=== PATIENT | male | born 1960 | race Caucasian/White ===

== ENCOUNTER → 2016-04-02 | Outpatient (CLI) | payer MEDICAID ==
--- NOTE | 2016-04-02 17:35 | DX ---
Chest, PA and Lateral History: Dyspnea x1 week, worsening dyspnea x1 week, hospitalized in February for pneumonia, J44.1 Findings: Right lower lobe consolidation has cleared. There is a significantly decreased amount of fl uid in the anterior right major fissure. There is no new infiltrate. There is chronic bronchial wall thickening associated with moderately prominent lung volumes. There is a stable mild T8 and T12 compr ession deformity, without new compression deformities. The costophrenic gutters are sharp. Impression: 1. Persistent airways disease /COPD 2. Improving pneumonia and right pleural effusion.
== END ==
LOC: FIMAGING 16:20
PROVIDERS: ATTEND Family Medicine
DX: J44.9 Chronic obstructive pulmonary disease, unspecified (principal); J18.9 Pneumonia, unspecified organism

== ENCOUNTER 2016-06-28 22:13 | Emergency (ER) | payer MEDICAID ==
--- NOTE | 2016-06-28 22:19 | EDPHY ---
H & P Source: Patient, EMS - Medical/Surgical History Hx Asthma: No Hx Chronic Respiratory Disease: Yes Hx Diabetes: No Hx Cardiac Disease: No Hx Renal Disease: No Hx Cirrhosis: No Hx Alcoholism: Yes Hx HIV/AIDS: No Hx Splenectomy or Spleen Trauma: No Other PMH: ETOH, respiratory illness-unspecified, COPD, right ankle fracture, tonsillectomy, DVT RLE - Social History Smoking Status: Current every day smoker HPI/ROS: HPI CHIEF COMPLAINT: Alcohol Intoxication HISTORY OF PRESENT ILLNESS: HPI CHIEF COMPLAINT: Alcohol Intoxication HISTORY OF PRESENT ILLNESS: Patient 55-year-old homeless male, significant past medical history daily alcohol use and alcoholism, was found on the ground by bystanders behind [employer] when EMS please make contact with him. They noticed that he had right eyebrow trauma with a horizontal laceration. No other signs of trauma. Patient presents emergency room no complaints. He is highly intoxicated slurring his speech. No other signs of trauma exam. He is calm and cooperative. Past Medical History: daily alcohol use Past Surgical History: recent surgical history Social History: homeless, daily alcohol use Family History: Noncontributory ROS REVIEW OF SYSTEMS: A comprehensive 10 point review of systems is otherwise negative aside from elements mentioned in the history of present illness. Exam Constitutional Intoxicated, triage nursing summary reviewed, vital signs reviewed, Sleepy, smells of alcohol Eyes normal conjunctivae and sclera, horizontal beating nystagmus consistent acute alcohol intoxication, otherwise pupils equal and react to light HENT face: right horizontal eyebrow laceration 3 cm in horizontal length, orbit stable, midface stable, normal inspection, atraumatic, moist mucus membranes, no epistaxis, neck supple/ no meningismus, no raccoon eyes. Respiratory clear to auscultation bilaterally, normal breath sounds, no respiratory distress, no wheezing. Cardiovascular rate normal, regular rhythm, no murmur, no edema, distal pulses normal. Gastrointestinal soft, non-tender, no rebound, no guarding, normal bowel sounds, no distension, no pulsatile mass. Genitourinary no CVA tenderness. Musculoskeletal no midline vertebral tenderness, full range of motion, no calf swelling, no tenderness of extremities, no meningismus, good pulses, neurovascularly intact. Skin pink, warm, & dry, no rash, skin atraumatic. Neurologic sleepy, intoxicated with alcohol,, alert and oriented x 3, AAOx3, moves all 4 extremities equally, motor intact, sensory intact, CN II-XII intact , , normal vision, normal speech. Psychiatric normal mood/affect. Heme/Lymph/Immune no lymphadenopathy. Differential Diagnosis: Includes but is not limited to in a particular order acute alcohol intoxication, alcohol abuse, dehydration, electrolyte abnormality , nausea vomiting from acute alcohol intoxication Medical Decision Making: Includes but is not limited to in a particular order acute alcohol intoxication, alcohol abuse, homelessness, head trauma, facial fracture, facial laceration, soft tissue injury, closed head injury Re-evaluation: Plan for this patient breath alcohol and CT head without contrast for trauma. Patient will need his laceration of his right eyebrow repaired. Breath alcohol 292. TIME OF BREATH 1031PM CT scan of the head without contrast for trauma The results of the study are negative for acute traumatic injury The study was read by Dr. Sanchez I viewed the images myself on the PACS system. Patient ambulated throughout the emergency room without any difficulty steady gait. Safe for discharge to the [facility]. ([place]) Constitutional: Initial Vital Signs Temperature (C) 36.3 C 06/28/16 22:21 Heart Rate 99 06/28/16 22:21 Respiratory Rate 17 06/28/16 22:21 Blood Pressure 122/76 H 06/28/16 22:21 O2 Sat (%) 91 L 06/28/16 22:21 O2 Delivery Mode Room Air Allergies/Adverse Reactions: No Known Allergies Allergy (Unverified 04/02/15 23:02) Home Medications: Medication Instructions Recorded Albuterol [Ventolin Hfa Inhaler] 1 - 2 puffs IH Q4 PRN 08/05/15 Fluticasone/Salmeter 500/50Mcg 1 puffs IH BID 08/05/15 [Advair 500/50 (*)] Tiotropium Inhaler [Spiriva 1 puffs IH DAILY 08/05/15 Handihaler] Acetaminophen [Tylenol 325mg (*)] 650 mg PO Q4 PRN #0 tab 08/07/15 Rivaroxaban [Xarelto] 20 mg PO DAILY #30 tab 08/07/15 Tramadol HCl 50 mg PO Q6 PRN #45 tablet 08/07/15 Acetaminophen [Tylenol 325mg (*)] 650 mg PO Q6HRS PRN #0 tab 03/03/16 Benzonatate [Tessalon Pearles] 200 mg PO TID PRN #20 cap 03/03/16 guaiFENesin [Mucinex 600 MG (*)] 1,200 mg PO BID #0 tab.er 03/03/16 levOFLOXACIN [levAQUIN (*)] 750 mg PO DAILY #13 tab 03/03/16 predniSONE 20 mg PO DAILY #5 tablet 03/03/16 Medical Decision Making - Diagnostics Imaging: Imaging Impressions Head CT 06/28/16 22:16 Impression: Normal noncontrast CT of the brain. Results called to Dr. Sandeep Farrell at 10:30 PM at the time of the interpretation. Procedures: Procedure: Laceration repair. Verbal consent was obtained from the patient. The 3 cm laceration on the right eyebrow was anesthetized in the usual fashion. The wound was irrigated, draped and explored to its base with a gloved finger. There were no deep structures involved. No tendon injury was identified. The wound was repaired with 5 0 Prolene, a running stitch. The wound repair was simple. The procedure was performed by myself. (Andrés Morris) Departure - Departure Disposition: Home, Routine, Self-Care Clinical Impression: Alcohol intoxication Qualifiers: Complication of substance-induced condition: uncomplicated Qualified Code(s): F10.120 - Alcohol abuse with intoxication, uncomplicated Eyebrow laceration Qualifiers: Encounter type: initial encounter Laterality: right Qualified Code(s): S01.111A - Laceration without foreign body of right eyelid and periocular area, initial encounter Condition: Good Instructions: Care For Your Stitches (ED), Laceration (ED), Alcohol Intoxication (ED) Additional Instructions: 1. You need to have your sutures removed in 7 days. Referrals: Patient,NotPresent [Primary Care Provider] - As per Instructions
[2016-06-28 22:23] VITALS: BP 122/76; PULSE 99; RESP 17; TEMP 97.3; O2SAT 91
[2016-06-28] MEDS ORDERED: CHLORDIAZEPOXIDE 25MG PREPK#6 BTL TAKEHOME ONE (23:24)
== END 2016-06-28 23:31 | disposition home or self-care (01) ==
LOC: EDUNIT#
PROC: 0HQ1XZZ Repair Face Skin, External Approach (ICD-10-PCS; principal; 2016-06-28)
DX: S01.111A Laceration without foreign body of right eyelid and periocular area, initial encounter (principal); F10.120 Alcohol abuse with intoxication, uncomplicated; J44.9 Chronic obstructive pulmonary disease, unspecified; F17.200 Nicotine dependence, unspecified, uncomplicated; X58.XXXA Exposure to other specified factors, initial encounter

== ENCOUNTER 2016-09-27 20:32 | Emergency (ER) | payer MEDICAID ==
[2016-09-27 20:46] VITALS: RESP 16; TEMP 98.4; O2SAT 90
--- NOTE | 2016-09-27 21:30 | EDPHY ---
H & P Time Seen by Provider: 09/27/16 21:13 HPI/ROS: CHIEF COMPLAINT: Abscess HISTORY OF PRESENT ILLNESS: This is a 55-year-old male patient presenting to the emergency department complaining of abscess skin infection to right side of butt. Patient states he was seen by his primary care physician at the [facility] and put on a topical cream triamcinolone but seems like the infection has worsened over the past few days. Patient does report he has been scratching the area. Denies any fever chills. REVIEW OF SYSTEMS: Constitutional: No fever, no chills. Eyes: No discharge. No blurred vision ENT: No sore throat. Cardiovascular: No chest pain, no palpitations. Respiratory: No cough, no shortness of breath. Gastrointestinal: No abdominal pain, no vomiting. Musculoskeletal: No back pain. Skin: No rashes. abscess right butt cheek Neurological: No headache. Smoking Status: Current every day smoker Physical Exam: General Appearance: Alert, no distress. HEENT: Normocephalic atraumatic Pupils equal and round no pallor or injection. Mucous membranes moist. Respiratory: There are no retractions, lungs are clear to auscultation. Cardiovascular: Regular rate and rhythm. Gastrointestinal: Abdomen is soft and nontender, no masses, bowel sounds normal. Neurological: No focal deficits. Patient answering questions appropriately Skin: Warm and dry, 3 cm x 3 cm abscess noted to right gluteal fold Musculoskeletal: Neck is supple nontender. Extremities: symmetrical, full range of motion. Psychiatric: Patient is oriented X 3, patient acting appropriately Constitutional: Initial Vital Signs Temperature (C) 36.9 C 09/27/16 20:43 Heart Rate 104 H 09/27/16 20:43 Respiratory Rate 16 09/27/16 20:43 Blood Pressure 125/77 H 09/27/16 20:43 O2 Sat (%) 90 L 09/27/16 20:43 O2 Delivery Mode Room Air Allergies/Adverse Reactions: No Known Allergies Allergy (Verified 09/27/16 20:46) Home Medications: Medication Instructions Recorded Albuterol [Ventolin Hfa Inhaler] 1 - 2 puffs IH Q4 PRN 08/05/15 Fluticasone/Salmeter 500/50Mcg 1 puffs IH BID 08/05/15 [Advair 500/50 (*)] Tiotropium Inhaler [Spiriva 1 puffs IH DAILY 08/05/15 Handihaler] Acetaminophen [Tylenol 325mg (*)] 650 mg PO Q4 PRN #0 tab 08/07/15 Rivaroxaban [Xarelto] 20 mg PO DAILY #30 tab 08/07/15 Tramadol HCl 50 mg PO Q6 PRN #45 tablet 08/07/15 Acetaminophen [Tylenol 325mg (*)] 650 mg PO Q6HRS PRN #0 tab 03/03/16 Benzonatate [Tessalon Pearles] 200 mg PO TID PRN #20 cap 03/03/16 guaiFENesin [Mucinex 600 MG (*)] 1,200 mg PO BID #0 tab.er 03/03/16 levOFLOXACIN [levAQUIN (*)] 750 mg PO DAILY #13 tab 03/03/16 predniSONE 20 mg PO DAILY #5 tablet 03/03/16 Sulfamethox/Tmp 800/160 mg 1 tab PO BID #14 tab 09/27/16 [Bactrim Ds] Medical Decision Making Procedures: Procedure: Abscess drainage. The patient's abscess was located on the right gluteal fold. I obtained verbal consent from the patient to drain the abscess who was informed about the risks including but not limited to the possibility of bleeding and pain. Lidocaine w/epi 5ml used. The abscess was incised with a #11 scalpel and moderate amount of purulent drainage was expressed. I irrigated the wound and packed it with iodoform gauze. The patient tolerated the procedure well. The procedure was performed by myself. ED Course/Re-evaluation: Discussed ED plan of care: I and D of abscess, patient tolerated procedure well. Prescribed antibiotic. Discharge home---> stable, discussed all discharge instructions with patient including follow up with his primary care provider for wound check in 2 days for repacking. Differential Diagnosis: Other differential diagnosis considered but not limited to lymphangitis, necrotizing fasciitis, and pilonidal abscess - Data Points Medications Given: Discontinued Medications Trimethoprim/Sulfamethoxazole (Bactrim Ds Prepack#2) 1 btl [employer] [facility] Stop: 09/27/16 21:50 Last Admin: 09/27/16 22:00 Dose: 1 btl Departure - Departure Disposition: Home, Routine, Self-Care Clinical Impression: Abscess, Cellulitis Condition: Good Instructions: Cellulitis (ED), Abscess (ED) Additional Instructions: 1. [facility] for reche[facility] of the abscess that we drained tonight 2. Do not remove packing gauze until you see your primary care [facility] tomorrow 3. You can use a warm compress to the area 4. Do not scratch or pick at the area you can worsen the infection 5. Take all antibiotics Referrals: NONE *PRIMARY CARE P,. [Primary Care Provider] - As per Instructions [facility],. [Clinic] - As per Instructions Prescriptions: Sulfamethox/Tmp 800/160 mg [Bactrim Ds] 1 tab PO BID #14 tab
[2016-09-27] MEDS ORDERED: SULFAMET/TMP DS PREPACK#2 BTL TAKEHOME ONE (21:49)
[2016-09-27 22:03] VITALS: BP 120/80; PULSE 83
== END 2016-09-27 22:01 | disposition home or self-care (01) ==
PROC: 0H98XZZ Drainage of Buttock Skin, External Approach (ICD-10-PCS; principal; 2016-09-27)
DX: L02.31 Cutaneous abscess of buttock (principal); L03.317 Cellulitis of buttock; F17.200 Nicotine dependence, unspecified, uncomplicated

== ENCOUNTER 2018-04-03 22:05 | Emergency (ER) | payer MEDICAID, OTHER ==
--- NOTE | 2018-04-03 22:08 | EDPHY ---
H & P Source: Patient, Police, EMS - Medical/Surgical History Hx Asthma: No Hx Chronic Respiratory Disease: Yes Hx Diabetes: No Hx Cardiac Disease: No Hx Renal Disease: No Hx Cirrhosis: No Hx Alcoholism: Yes Hx HIV/AIDS: No Hx Splenectomy or Spleen Trauma: No Other PMH: ETOH, respiratory illness-unspecified, COPD, right ankle fracture, tonsillectomy, DVT RLE, concussions - Social History Smoking Status: Current every day smoker Time Seen by Provider: 04/03/18 22:06 HPI/ROS: HPI CHIEF COMPLAINT: M1 hold by police, suicidal ideation HISTORY OF PRESENT ILLNESS: 57-year-old male, presents to the emergency room by police on M1 hold for suicidal ideation. Patient does not really answer any questions upon arrival. He is highly intoxicated with alcohol. He does state he is depressed and suicidal. Past Medical History: Medical history obtained from previous records, he has a history of COPD, community-acquired pneumonia, DVT/PE was on Xarelto, hyponatremia Past Surgical History: Denies recent surgery Social History: Alcoholism. Homeless. Family History: Noncontributory ROS REVIEW OF SYSTEMS: Limited due to patient's willingness to answer questions. Exam Constitutional intoxicated, smells of alcohol, triage nursing summary reviewed , vital signs reviewed, awake/alert. Eyes normal conjunctivae and sclera, EOMI, PERRLA. HENT normal inspection, atraumatic, moist mucus membranes, no epistaxis, neck supple/ no meningismus, no raccoon eyes. Respiratory clear to auscultation bilaterally, normal breath sounds, no respiratory distress, no wheezing. Cardiovascular rate normal, regular rhythm, no murmur, no edema, distal pulses normal. Gastrointestinal soft, non-tender, no rebound, no guarding, normal bowel sounds, no distension, no pulsatile mass. Genitourinary no CVA tenderness. Musculoskeletal no midline vertebral tenderness, full range of motion, no calf swelling, no tenderness of extremities, no meningismus, good pulses, neurovascularly intact. Skin pink, warm, & dry, no rash, skin atraumatic. Neurologic awake, alert and oriented x 3, AAOx3, moves all 4 extremities equally, motor intact, sensory intact, CN II-XII intact, normal cerebellar, normal vision, normal speech. Psychiatric flat affect, depressed, suicidal. Heme/Lymph/Immune no lymphadenopathy. Differential Diagnosis: Includes but is not limited to in a particular order underlying mood disorder, depression, suicidal ideation, substance abuse, intoxication Medical Decision Making: Plan for this patient blood draw for medical clearance drug screen, alcohol level, patient on M1 hold by police will need mental health evaluation once sober. Re-evaluation: 0500: Patient is sleeping. No acute distress. Patient here suicidal ideation on M1 hold highly intoxicated with alcohol. Patient need mental health evaluation once sober. Patient signed over at 6:[address] Geronimo. [facility] Constitutional: Initial Vital Signs Temperature (C) 36.5 C 04/03/18 22:07 Heart Rate 80 04/03/18 22:07 Respiratory Rate 18 04/03/18 22:07 Blood Pressure 137/92 H 04/03/18 22:07 O2 Sat (%) 92 04/03/18 22:07 O2 Delivery Mode Room Air Allergies/Adverse Reactions: No Known Allergies Allergy (Verified 04/03/18 22:07) Home Medications: Medication Instructions Recorded Albuterol [Ventolin Hfa Inhaler] 1 - 2 puffs IH Q4 PRN 08/05/15 Fluticasone/Salmeter 500/50Mcg 1 puffs IH BID 08/05/15 [Advair 500/50 (*)] Tiotropium Inhaler [Spiriva 1 puffs IH DAILY 08/05/15 Handihaler] Tramadol HCl 50 mg PO Q6 PRN #45 tablet 08/07/15 predniSONE 20 mg PO DAILY #5 tablet 03/03/16 Medical Decision Making Other Provider: Care assumed at 6:45 a.m. For this patient who presented with a blood alcohol of 362 and suicidal ideation. 700: Patient personally evaluated by myself. He is awake alert and only complaining of his chronic back and carpal tunnel pain. He denies suicidal ideation admits to alcohol last night. His mental health hold his reviewed and states that the patient said he overdosed on medication. He regrets any statements he made last night, he says he does not want hurt himself and just wants to get his cane so he can go home. Denies suicidal or homicidal ideation at this time. Is clinically sober. If acetaminophen level is negative will vacate the hold and discharge him. (Jason Geronimo) - Data Points Laboratory Results: Laboratory Results 04/03/18 22:10 04/03/18 22:10 04/03/18 04/03/18 04/03/18 22:10 22:10 22:10 WBC 4.73 10^3/uL 10^3/uL (3.80-9.50) RBC 4.71 10^6/uL 10^6/uL (4.40-6.38) Hgb 15.5 g/dL g/dL (13.7-17.5) Hct 43.4 % % (40.0-51.0) MCV 92.1 fL fL (81.5-99.8) MCH 32.9 pg pg (27.9-34.1) MCHC 35.7 g/dL g/dL (32.4-36.7) RDW 15.8 % H % (11.5-15.2) Plt Count 152 10^3/uL 10^3/uL (150-400) MPV 9.1 fL fL (8.7-11.7) Neut % (Auto) 40.8 % % (39.3-74.2) Lymph % (Auto) 38.5 % % (15.0-45.0) [place] % (Auto) 16.9 % H % (4.5-13.0) Eos % (Auto) 1.9 % % (0.6-7.6) Baso % (Auto) 1.7 % % (0.3-1.7) Nucleat RBC Rel Count 0.0 % % (0.0-0.2) Absolute Neuts (auto) 1.93 10^3/uL 10^3/uL (1.70-6.50) Absolute Lymphs (auto) 1.82 10^3/uL 10^3/uL (1.00-3.00) Absolute Monos (auto) 0.80 10^3/uL 10^3/uL (0.30-0.80) Absolute Eos (auto) 0.09 10^3/uL 10^3/uL (0.03-0.40) Absolute Basos (auto) 0.08 10^3/uL 10^3/uL (0.02-0.10) Absolute Nucleated RBC 0.00 10^3/uL 10^3/uL (0-0.01) Immature Gran % 0.2 % % (0.0-1.1) Immature Gran # 0.01 10^3/uL 10^3/uL (0.00-0.10) Sodium 141 mEq/L mEq/L (135-145) Potassium 3.7 mEq/L mEq/L (3.5-5.2) Chloride 105 mEq/L mEq/L (97-110) Carbon Dioxide 26 mEq/l mEq/l (22-31) Anion Gap 10 mEq/L mEq/L (6-14) BUN 7 mg/dL mg/dL (7-23) Creatinine 0.5 mg/dL L mg/dL (0.7-1.3) Estimated GFR > 60 Glucose 99 mg/dL mg/dL (70-100) Calcium 9.5 mg/dL mg/dL (8.5-10.4) Urine Opiates Screen NEGATIVE (NEGATIVE) Urine Barbiturates NEGATIVE (NEGATIVE) Ur Phencyclidine Scrn NEGATIVE (NEGATIVE) Ur Amphetamine Screen NEGATIVE (NEGATIVE) U Benzodiazepines Scrn NEGATIVE (NEGATIVE) Urine Cocaine Screen NEGATIVE (NEGATIVE) U Marijuana (THC) Screen NON-NEGATIVE H (NEGATIVE) Ethyl Alcohol 362 mg/dL H mg/dL (0-10) Departure - Departure Clinical Impression: Alcohol intoxication Qualifiers: Complication of substance-induced condition: uncomplicated Qualified Code(s): F10.920 - Alcohol use, unspecified with intoxication, uncomplicated Depression Qualifiers: Depression Type: unspecified Qualified Code(s): F32.9 - Major depressive disorder, single episode, unspecified Condition: Good Instructions: Alcohol Intoxication (ED) Referrals: Stanislaw Contreras MD [Medical Doctor] - As per Instructions
[2018-04-03 22:22] LABS: PLATELET COUNT 152 10^3/uL (150-400)
[2018-04-04 07:54] VITALS: BP 118/79
== END 2018-04-04 07:53 | disposition home or self-care (01) ==
DX: F10.920 Alcohol use, unspecified with intoxication, uncomplicated (principal); F32.9 Major depressive disorder, single episode, unspecified; J44.9 Chronic obstructive pulmonary disease, unspecified
CPT/HCPCS: 80305; G0480